=== PATIENT | female | born 1935 | race Caucasian/White ===

== ENCOUNTER 2017-08-19 09:40 | Inpatient (IN) | payer MEDICARE, OTHER ==
[~2017-08-19] VITALS: Ht 165.1 cm; Wt 81.8 kg
[2017-08-19] MEDS ORDERED: IBUP-1986 PO (10:22)
[2017-08-19] MEDS ORDERED: GABA-532 PO (10:23)
[2017-08-19] MEDS ORDERED: OXYC-150 PO (10:25)
[2017-08-19] MEDS ORDERED: CLON-529 PO (10:26)
[2017-08-19] MEDS ORDERED: CBD CREAM TP (10:37)
[2017-08-19 10:45] LABS: BASOPHILS % (AUTO) 0.1 % (0-1); EOSINOPHILS # (AUTO) 0.1 X10'3 (0-0.9); EOSINOPHILS % (AUTO) 0.5 % (0-6); HEMATOCRIT 33.9 % (35.0-45.0); HEMOGLOBIN 11.4 g/dl (12.0-16.0); LYMPHOCYTES # (AUTO) 0.8 X10'3 (1.1-4.8); LYMPHOCYTES % (AUTO) 5.8 % (21-51); MEAN CORPUSCULAR HEMOGLOBIN 27.8 PG (27.0-31.0); MEAN CORPUSCULAR HGB CONC 33.7 % (33.0-36.5); MEAN CORPUSCULAR VOLUME 82.5 FL (78-98); MEAN PLATELET VOLUME 8.5 FL (7.4-10.4); MONOCYTES # (AUTO) 0.9 X10'3 (0-0.9); MONOCYTES % (AUTO) 6.5 % (2-12); NEUTROPHILS % (AUTO) 87.1 % (42-75); PLATELET COUNT 161 X10'3 (140-440); RED BLOOD COUNT 4.11 X10'6 (4.20-5.60); WHITE BLOOD COUNT 13.7 X10'3 (4.5-11.0)
[2017-08-19 10:49] LABS: PARTIAL THROMBOPLASTIN TIME 31 SECONDS (22-32); PROTHROMBIN TIME 10.6 SECONDS (9.0-12.0)
[2017-08-19 10:53] LABS: ALANINE AMINOTRANSFERASE 28 U/L (12-78); ALBUMIN 2.7 G/DL (3.4-5.0); ALBUMIN/GLOBULIN RATIO 0.9 (1.1-1.5); ALKALINE PHOSPHATASE 102 IU/L (46-116); ANION GAP 11 (8-16); ASPARTATE AMINO TRANSFERASE 41 U/L (10-37); BILIRUBIN,TOTAL 0.4 MG/DL (0.1-1.0); BLOOD UREA NITROGEN 24 MG/DL (7-18); BUN/CREATININE RATIO 23.1 (6.6-38.0); CALCIUM 7.9 MG/DL (8.5-10.1); CHLORIDE 111 MMOL/L (99-107); CREATININE 1.04 MG/DL (0.40-0.90); GLUCOSE 122 MG/DL (70-104); MAGNESIUM 1.5 MG/DL (1.5-2.4); SODIUM 144 MMOL/L (135-145); TOTAL CARBON DIOXIDE 22.3 MMOL/L (24-32); TOTAL PROTEIN 5.8 G/DL (6.4-8.2); eGFR 51 ML/MIN
[2017-08-19 10:54] LABS: POTASSIUM 2.8 MMOL/L (3.5-5.1)
[2017-08-19 11:08] LABS: TOTAL CELLS COUNTED 100
[2017-08-19 11:09] LABS: PLATELET ESTIMATE NORMAL
[2017-08-19 11:11] LABS: CLARITY,URINE SLIGHTLY CLOUDY (Clear); COLOR,URINE YELLOW (Yellow); GLUCOSE, URINE NEGATIVE (Neg); KETONES,URINE NEGATIVE (Neg); LEUKOCYTE ESTERASE ,URINE NEGATIVE (Neg); NITRITES, URINE NEGATIVE (Neg); OCCULT BLOOD,URINE LARGE (Neg); PROTEIN,URINE 30 mg/dl (Neg); UROBILINOGEN,URINE 0.2 E.U/dL (0.2-1.0)
[2017-08-19 11:12] LABS: UA COLLECTION TYPE FOLEY CATH
[2017-08-19 11:23] LABS: BACTERIA,URINE 1+ /HPF (Neg); MUCUS STRANDS FEW /LPF (Neg); SQUAMOUS EPITHELIAL CELL,UR FEW /LPF (FEW)
[2017-08-19 11:24] LABS: WBC,URINE 0-4 /HPF (0-4)
[2017-08-19] MEDS ORDERED: normal saline 1000ML IV soln IVB ONE (11:35)
[2017-08-19] MEDS ORDERED: potassium Cl 10 mEq/100mL bag IV ONE (11:35)
[2017-08-19] MEDS ORDERED: potassium Cl 20 mEq SR tablet PO PRN (11:45)
[2017-08-19] MEDS ORDERED: potassium Cl 40MEQ/NS 500ml 500 ML IV PRN ×2 (11:45)
[2017-08-19] MEDS ORDERED: potassium 10mEq/100ml NS w/LIDOcaine (10mg/bag) IV ONE (11:50)
[2017-08-19] MEDS ORDERED: morphine 4 MG/ML inj SYRINge IV PRN (12:00)
[2017-08-19] MEDS ORDERED: magnesium hydroxide 30ml (MOM) UD suspension PO PRN (12:00)
[2017-08-19] MEDS ORDERED: ondansetron/PF 4mg/2ml inj IV PRN (12:00)
[2017-08-19] MEDS ORDERED: mag hydrox/Alum hydrox/simeth 30ml oral suspension PO PRN (12:00)
[2017-08-19 12:26] LABS: ABG BASE EXCESS -1.6 mmol/L (-2.0-3.0); ABG HCO3 21.4 mmol/L (22.0-26.0); ABG OXYGEN SATURATION 95.1 % (95-98); ABG PCO2 (T) 32.8 mmHg (32.0-45.0); ABG PH (T) 7.438 (7.350-7.450); ABG PO2 (T) 81.7 mmHg (83-108); ALLEN'S TEST Positive; FCOHb 0.1 % (0.5-1.5); FLOW 4 L/min; FMetHb 0.1 % (0.3-1.12); FO2Hb 94.9 % (94-100); PATIENT TEMPERATURE 38.5
[2017-08-19 13:00] VITALS: BP 118/58
[2017-08-19] MEDS: vancomycin/NS 1 GM ADD-VANTAGE 250 ML IV SCH ×2 (13:16→20:33)
[2017-08-19] MEDS: normal saline 1000ml 1,000 ML IV SCH ×2 (13:24→22:39)
[2017-08-19] MEDS ORDERED: ibuprofen tablet 400 MG TABLET PO PRN (14:10)
[2017-08-19 15:00] VITALS: BP 136/67
[2017-08-19] MEDS: cefepime 1GM/NS ADD-VANTAGE 100 ML IV SCH ×2 (15:19→15:21)
[2017-08-19] MEDS ORDERED: heparin 10,000 units/1 ML INJ IV ONE (16:00)
[2017-08-19] MEDS: aspirin 325mg tablet PO SCH (16:11)
[2017-08-19 16:49] LABS: BASOPHILS % (AUTO) 0 % (0-1); EOSINOPHILS % (AUTO) 0 % (0-6); HEMATOCRIT 33.9 % (35.0-45.0); HEMOGLOBIN 11.4 g/dl (12.0-16.0); LYMPHOCYTES # (AUTO) 0.7 X10'3 (1.1-4.8); LYMPHOCYTES % (AUTO) 3.8 % (21-51); MEAN CORPUSCULAR HEMOGLOBIN 27.9 PG (27.0-31.0); MEAN CORPUSCULAR HGB CONC 33.6 % (33.0-36.5); MEAN CORPUSCULAR VOLUME 83.1 FL (78-98); MEAN PLATELET VOLUME 8.4 FL (7.4-10.4); MONOCYTES # (AUTO) 0.9 X10'3 (0-0.9); MONOCYTES % (AUTO) 5.1 % (2-12); NEUTROPHILS # (AUTO) 15.8 X10'3 (1.8-7.7); NEUTROPHILS % (AUTO) 91.1 % (42-75); PLATELET COUNT 169 X10'3 (140-440); RED BLOOD COUNT 4.08 X10'6 (4.20-5.60); RED CELL DISTRIBUTION WIDTH 14.6 % (11.5-14.5); WHITE BLOOD COUNT 17.4 X10'3 (4.5-11.0)
[2017-08-19 17:16] LABS: CHOL/HDL RATIO 3.1 (0.00-4.99); CHOLESTEROL 119 MG/DL (0-200); HDL CHOLESTEROL 39 MG/DL (35-60); LDL CHOLESTEROL 62 MG/DL (50-100); TRIGLYCERIDES 106 MG/DL (20-135)
[2017-08-19 17:27] LABS: INR 1.1 INR; PROTHROMBIN TIME 11.4 SECONDS (9.0-12.0)
[2017-08-19 17:31] LABS: PARTIAL THROMBOPLASTIN TIME > 153 SECONDS (22-32)
[2017-08-19] MEDS: HYDROcodone/acetaminophen 5mg/325mg tablet PO PRN (17:57)
[2017-08-19 19:00] VITALS: BP 140/69
[2017-08-19] MEDS: gabapentin 300mg capsule PO SCH (20:33)
[2017-08-19] MEDS: metoprolol tartrate 12.5mg (1/2 tablet) PO SCH (20:33)
[2017-08-19 22:40] LABS: POTASSIUM 3.5 MMOL/L (3.5-5.1)
[2017-08-19 23:00] VITALS: BP 126/63
[2017-08-20] MEDS: morphine 4 MG/ML inj SYRINge IV PRN ×4 (02:06→20:44)
[2017-08-20 02:11] LABS: BASOPHILS % (AUTO) 0.1 % (0-1); EOSINOPHILS % (AUTO) 0 % (0-6); HEMATOCRIT 32.6 % (35.0-45.0); MEAN CORPUSCULAR HEMOGLOBIN 28.1 PG (27.0-31.0); MEAN CORPUSCULAR HGB CONC 33.8 % (33.0-36.5); MEAN CORPUSCULAR VOLUME 83.2 FL (78-98); MEAN PLATELET VOLUME 8.1 FL (7.4-10.4); MONOCYTES # (AUTO) 0.7 X10'3 (0-0.9); MONOCYTES % (AUTO) 4.8 % (2-12); NEUTROPHILS # (AUTO) 12.2 X10'3 (1.8-7.7); NEUTROPHILS % (AUTO) 88.1 % (42-75); PLATELET COUNT 161 X10'3 (140-440); RED BLOOD COUNT 3.91 X10'6 (4.20-5.60); RED CELL DISTRIBUTION WIDTH 14.6 % (11.5-14.5); WHITE BLOOD COUNT 13.9 X10'3 (4.5-11.0)
[2017-08-20 02:27] LABS: ALBUMIN 2.3 G/DL (3.4-5.0); ANION GAP 12 (8-16); BLOOD UREA NITROGEN 29 MG/DL (7-18); BUN/CREATININE RATIO 33.3 (6.6-38.0); CALCIUM 7.1 MG/DL (8.5-10.1); CHLORIDE 113 MMOL/L (99-107); CREATININE 0.87 MG/DL (0.40-0.90); GLUCOSE 123 MG/DL (70-104); MAGNESIUM 1.6 MG/DL (1.5-2.4); POTASSIUM 3.5 MMOL/L (3.5-5.1); SODIUM 146 MMOL/L (135-145); TOTAL CARBON DIOXIDE 21.2 MMOL/L (24-32); eGFR 62 ML/MIN
[2017-08-20 03:00] VITALS: BP 161/75
[2017-08-20] MEDS: morphine 2 MG/ML inj. syringe IV PRN ×2 (04:35→04:42)
[2017-08-20] MEDS ORDERED: morphine 4 MG/ML inj SYRINge IV PRN (04:35)
[2017-08-20 05:30] VITALS: BP 159/76
[2017-08-20] MEDS: normal saline 1000ml 1,000 ML IV SCH ×2 (07:59→18:00)
[2017-08-20] MEDS ORDERED: enoxaparin 40mg/0.4ml syringe SUBCUT SCH (08:00)
[2017-08-20] MEDS ORDERED: lisinopril 20mg tablet PO SCH (08:00)
[2017-08-20] MEDS: gabapentin 300mg capsule PO SCH ×3 (08:22→20:22)
[2017-08-20] MEDS: aspirin 325mg tablet PO SCH (08:23)
[2017-08-20] MEDS: atorvastatin 20mg tablet PO SCH (08:23)
[2017-08-20] MEDS: metoprolol tartrate 12.5mg (1/2 tablet) PO SCH ×2 (08:23→20:22)
[2017-08-20] MEDS: cefepime 1GM/NS ADD-VANTAGE 100 ML IV SCH ×4 (08:24→23:15)
[2017-08-20] MEDS: vancomycin/NS 1 GM ADD-VANTAGE 250 ML IV SCH (09:58)
[2017-08-20 11:00] VITALS: BP 165/74
[2017-08-20] MEDS ORDERED: magnesium/D5W IVPB 100 ML IV ONE (12:30)
[2017-08-20] MEDS: metoclopramide 5 mg/ml inj IV PRN ×2 (12:59→22:03)
[2017-08-20 13:05] LABS: LIPASE < 50 U/L (73-393)
[2017-08-20] MEDS: potassium Cl 20 mEq SR tablet PO SCH ×3 (13:25→23:15)
[2017-08-20 15:00] VITALS: BP 179/86
[2017-08-20] MEDS: ondansetron/PF 4mg/2ml inj IV PRN ×2 (15:15→20:37)
[2017-08-20] MEDS: acetaminophen 325mg tablet PO PRN (15:16)
[2017-08-20] MEDS: cloNIDine 0.1 mg tablet PO SCH (16:09)
[2017-08-20 19:00] VITALS: BP 135/63
[2017-08-20] MEDS: vancomycin inj 1,250 MG in normal saline 250ml IV soln 250 ML IV SCH (20:22)
[2017-08-20] MEDS: lactobacillus rhamnosus 10,000 MMU CELLS/CAPSULE PO SCH (20:22)
[2017-08-20 23:00] VITALS: BP 174/90
[2017-08-20] MEDS: HYDROcodone/acetaminophen 5mg/325mg tablet PO PRN (23:15)
[2017-08-21] VITALS (7 sets, daily range): BP systolic 135–169; BP diastolic 67–95
[2017-08-21] MEDS: normal saline 1000ml 1,000 ML IV SCH (03:55)
[2017-08-21] MEDS: HYDROcodone/acetaminophen 5mg/325mg tablet PO PRN ×2 (04:25→09:46)
[2017-08-21] MEDS: ondansetron/PF 4mg/2ml inj IV PRN ×2 (05:15→12:40)
[2017-08-21 06:21] LABS: ALBUMIN 2.2 G/DL (3.4-5.0); ANION GAP 11 (8-16); BLOOD UREA NITROGEN 37 MG/DL (7-18); BUN/CREATININE RATIO 41.6 (6.6-38.0); CALCIUM 7.8 MG/DL (8.5-10.1); CHLORIDE 114 MMOL/L (99-107); CREATININE 0.89 MG/DL (0.40-0.90); GLUCOSE 169 MG/DL (70-104); MAGNESIUM 2.4 MG/DL (1.5-2.4); POTASSIUM 3.4 MMOL/L (3.5-5.1); SODIUM 145 MMOL/L (135-145); TOTAL CARBON DIOXIDE 20.3 MMOL/L (24-32); eGFR 60 ML/MIN
[2017-08-21 06:52] LABS: BASOPHILS # (AUTO) 0.1 X10'3 (0-0.2); BASOPHILS % (AUTO) 0.4 % (0-1); EOSINOPHILS % (AUTO) 0.1 % (0-6); HEMATOCRIT 31.7 % (35.0-45.0); HEMOGLOBIN 10.6 g/dl (12.0-16.0); LYMPHOCYTES # (AUTO) 1.6 X10'3 (1.1-4.8); LYMPHOCYTES % (AUTO) 8.4 % (21-51); MEAN CORPUSCULAR HEMOGLOBIN 28.1 PG (27.0-31.0); MEAN CORPUSCULAR HGB CONC 33.5 % (33.0-36.5); MEAN CORPUSCULAR VOLUME 83.9 FL (78-98); MEAN PLATELET VOLUME 9.4 FL (7.4-10.4); MONOCYTES # (AUTO) 0.8 X10'3 (0-0.9); MONOCYTES % (AUTO) 4.1 % (2-12); NEUTROPHILS # (AUTO) 16.9 X10'3 (1.8-7.7); PLATELET COUNT 177 X10'3 (140-440); RED BLOOD COUNT 3.78 X10'6 (4.20-5.60); WHITE BLOOD COUNT 19.4 X10'3 (4.5-11.0)
[2017-08-21] MEDS: potassium Cl 20 mEq SR tablet PO PRN ×3 (07:15→17:22)
[2017-08-21] MEDS: gabapentin 300mg capsule PO SCH ×3 (07:17→20:59)
[2017-08-21] MEDS: atorvastatin 20mg tablet PO SCH (07:17)
[2017-08-21] MEDS: metoprolol tartrate 25mg tablet PO SCH ×2 (07:17→20:59)
[2017-08-21] MEDS: cloNIDine 0.1 mg tablet PO SCH ×2 (07:17→20:59)
[2017-08-21] MEDS: aspirin 81mg tablet.DR PO SCH (07:17)
[2017-08-21] MEDS: proCHLORperazine 10 MG/2 ml inj IV PRN ×2 (07:18→16:51)
[2017-08-21] MEDS: lactobacillus rhamnosus 10,000 MMU CELLS/CAPSULE PO SCH ×2 (07:18→20:59)
[2017-08-21] MEDS: cefepime 1GM/NS ADD-VANTAGE 100 ML IV SCH ×2 (07:23→17:22)
[2017-08-21] MEDS: clopidogrel 75mg tablet PO SCH (07:26)
[2017-08-21] MEDS: heparin 10,000 units/1 ML INJ IV PRN (07:42)
[2017-08-21 09:29] LABS: TROPONIN I 6.42 NG/ML (0.0-0.05)
[2017-08-21] MEDS: pantoprazole 40mg Tablet.DR PO SCH (09:33)
[2017-08-21] MEDS: vancomycin inj 1,250 MG in normal saline 250ml IV soln 250 ML IV SCH ×2 (09:34→20:58)
[2017-08-21 10:11] LABS: PLATELET ESTIMATE NORMAL; TOTAL CELLS COUNTED 100
[2017-08-21] MEDS ORDERED: iron dextran complex inj. 100 MG in normal saline 100ml IV soln 98 ML IV SCH (12:45)
[2017-08-21] MEDS ORDERED: folic acid 1mg/0.2ml inj IV SCH (12:45)
[2017-08-21] MEDS: LACTOSE-FREE FOOD 237ML (BOOST) PO SCH ×2 (13:00→18:00)
[2017-08-21] MEDS: morphine 4 MG/ML inj SYRINge IV PRN ×2 (13:01→20:58)
[2017-08-21] MEDS: acetaminophen 325mg tablet PO PRN (15:31)
[2017-08-22] VITALS (7 sets, daily range): BP systolic 132–186; BP diastolic 66–93
[2017-08-22] MEDS: cefepime 1GM/NS ADD-VANTAGE 100 ML IV SCH ×4 (00:35→23:33)
[2017-08-22] MEDS: morphine 4 MG/ML inj SYRINge IV PRN ×2 (02:45→20:13)
[2017-08-22 04:40] LABS: BASOPHILS % (AUTO) 0 % (0-1); EOSINOPHILS % (AUTO) 0 % (0-6); HEMATOCRIT 30.9 % (35.0-45.0); HEMOGLOBIN 10.7 g/dl (12.0-16.0); LYMPHOCYTES % (AUTO) 9.8 % (21-51); MEAN CORPUSCULAR HEMOGLOBIN 28.4 PG (27.0-31.0); MEAN CORPUSCULAR HGB CONC 34.5 % (33.0-36.5); MEAN CORPUSCULAR VOLUME 82.3 FL (78-98); MEAN PLATELET VOLUME 8.9 FL (7.4-10.4); MONOCYTES # (AUTO) 0.8 X10'3 (0-0.9); NEUTROPHILS # (AUTO) 17.7 X10'3 (1.8-7.7); NEUTROPHILS % (AUTO) 86.2 % (42-75); PLATELET COUNT 211 X10'3 (140-440); RED BLOOD COUNT 3.76 X10'6 (4.20-5.60); RED CELL DISTRIBUTION WIDTH 14.6 % (11.5-14.5); WHITE BLOOD COUNT 20.5 X10'3 (4.5-11.0)
[2017-08-22 04:55] LABS: ALBUMIN 2.2 G/DL (3.4-5.0); ANION GAP 12 (8-16); BLOOD UREA NITROGEN 32 MG/DL (7-18); BUN/CREATININE RATIO 37.2 (6.6-38.0); CALCIUM 7.7 MG/DL (8.5-10.1); CHLORIDE 113 MMOL/L (99-107); CREATININE 0.86 MG/DL (0.40-0.90); GLUCOSE 137 MG/DL (70-104); POTASSIUM 3.4 MMOL/L (3.5-5.1); SODIUM 146 MMOL/L (135-145); TOTAL CARBON DIOXIDE 21.4 MMOL/L (24-32); eGFR 63 ML/MIN
[2017-08-22] MEDS: heparin 10,000 units/1 ML INJ IV PRN (05:21)
[2017-08-22] MEDS: HYDROcodone/acetaminophen 5mg/325mg tablet PO PRN ×2 (05:25→15:28)
[2017-08-22] MEDS: proCHLORperazine 10 MG/2 ml inj IV PRN ×2 (07:22→20:31)
[2017-08-22] MEDS: cloNIDine 0.1 mg tablet PO SCH ×3 (07:26→20:12)
[2017-08-22] MEDS: aspirin 81mg tablet.DR PO SCH (07:26)
[2017-08-22] MEDS: pantoprazole 40mg Tablet.DR PO SCH (07:26)
[2017-08-22] MEDS: gabapentin 300mg capsule PO SCH ×2 (07:26→20:11)
[2017-08-22] MEDS: metoprolol tartrate 25mg tablet PO SCH ×2 (07:26→20:11)
[2017-08-22] MEDS: atorvastatin 20mg tablet PO SCH (07:26)
[2017-08-22] MEDS: clopidogrel 75mg tablet PO SCH (07:26)
[2017-08-22] MEDS: lactobacillus rhamnosus 10,000 MMU CELLS/CAPSULE PO SCH ×2 (07:27→20:11)
[2017-08-22] MEDS: LACTOSE-FREE FOOD 237ML (BOOST) PO SCH ×3 (07:27→19:25)
[2017-08-22] MEDS ORDERED: VANCOMYCIN LEVEL IV ONE (07:30)
[2017-08-22 07:45] LABS: TOTAL CELLS COUNTED 100
[2017-08-22 07:46] LABS: PLATELET ESTIMATE NORMAL; POLYCHROMASIA FEW
[2017-08-22] MEDS ORDERED: LIDOcaine 1% 30ml vial 5 ML in potassium Cl 40MEQ/NS 500ml 500 ML IV PRN (08:30)
[2017-08-22] MEDS: vancomycin inj 1,250 MG in normal saline 250ml IV soln 250 ML IV SCH ×2 (09:48→20:11)
[2017-08-22] MEDS ORDERED: furosemide 10 MG/1 ML 10ml inj IV ONE (13:20)
[2017-08-23 02:00] VITALS: BP 148/70
[2017-08-23 03:26] LABS: BASOPHILS % (AUTO) 0.3 % (0-1); EOSINOPHILS # (AUTO) 0.1 X10'3 (0-0.9); EOSINOPHILS % (AUTO) 0.9 % (0-6); HEMATOCRIT 28.5 % (35.0-45.0); HEMOGLOBIN 9.8 g/dl (12.0-16.0); LYMPHOCYTES # (AUTO) 2.5 X10'3 (1.1-4.8); LYMPHOCYTES % (AUTO) 18.1 % (21-51); MEAN CORPUSCULAR HEMOGLOBIN 28.3 PG (27.0-31.0); MEAN CORPUSCULAR HGB CONC 34.2 % (33.0-36.5); MEAN CORPUSCULAR VOLUME 82.6 FL (78-98); MEAN PLATELET VOLUME 8.8 FL (7.4-10.4); MONOCYTES # (AUTO) 0.8 X10'3 (0-0.9); MONOCYTES % (AUTO) 6.1 % (2-12); NEUTROPHILS # (AUTO) 10.4 X10'3 (1.8-7.7); NEUTROPHILS % (AUTO) 74.6 % (42-75); PLATELET COUNT 216 X10'3 (140-440); RED BLOOD COUNT 3.45 X10'6 (4.20-5.60); RED CELL DISTRIBUTION WIDTH 13.9 % (11.5-14.5)
[2017-08-23 03:48] LABS: ANION GAP 8 (8-16); BLOOD UREA NITROGEN 28 MG/DL (7-18); BUN/CREATININE RATIO 33.3 (6.6-38.0); CALCIUM 7.6 MG/DL (8.5-10.1); CHLORIDE 111 MMOL/L (99-107); CREATININE 0.84 MG/DL (0.40-0.90); GLUCOSE 119 MG/DL (70-104); MAGNESIUM 1.8 MG/DL (1.5-2.4); POTASSIUM 3.1 MMOL/L (3.5-5.1); SODIUM 145 MMOL/L (135-145); TOTAL CARBON DIOXIDE 26.5 MMOL/L (24-32); eGFR 65 ML/MIN
[2017-08-23] MEDS: proCHLORperazine 10 MG/2 ml inj IV PRN (04:35)
[2017-08-23] MEDS: morphine 2 MG/ML inj. syringe IV PRN (04:37)
[2017-08-23 07:00] VITALS: BP 167/73
[2017-08-23] MEDS ORDERED: magnesium Cl slow-release 64mg tablet PO PRN (07:15)
[2017-08-23] MEDS ORDERED: potassium Cl 40MEQ/NS 500ml 500 ML IV PRN ×2 (07:15)
[2017-08-23] MEDS ORDERED: magnesium 4gm in 100ml NS 100 ML IV PRN (07:15)
[2017-08-23] MEDS ORDERED: magnesium/D5W IVPB 100 ML IV PRN (07:15)
[2017-08-23] MEDS: cloNIDine 0.1 mg tablet PO SCH ×3 (07:56→21:49)
[2017-08-23] MEDS: metoprolol tartrate 25mg tablet PO SCH ×2 (08:00→19:47)
[2017-08-23] MEDS: pantoprazole 40mg Tablet.DR PO SCH (08:07)
[2017-08-23] MEDS: clopidogrel 75mg tablet PO SCH (08:08)
[2017-08-23] MEDS: furosemide 20 MG/2 ML vial IV SCH (08:08)
[2017-08-23] MEDS: lactobacillus rhamnosus 10,000 MMU CELLS/CAPSULE PO SCH ×2 (08:08→19:44)
[2017-08-23] MEDS: gabapentin 300mg capsule PO SCH ×2 (08:08→19:45)
[2017-08-23] MEDS: atorvastatin 20mg tablet PO SCH (08:09)
[2017-08-23] MEDS: aspirin 81mg tablet.DR PO SCH (08:09)
[2017-08-23] MEDS: LACTOSE-FREE FOOD 237ML (BOOST) PO SCH ×3 (08:10→19:44)
[2017-08-23] MEDS: cefepime 1GM/NS ADD-VANTAGE 100 ML IV SCH ×2 (08:10→16:58)
[2017-08-23] MEDS: ondansetron/PF 4mg/2ml inj IV PRN ×2 (08:28→18:42)
[2017-08-23] MEDS: potassium Cl 20 mEq SR tablet PO PRN ×3 (08:28→18:42)
[2017-08-23] MEDS: vancomycin inj 1,250 MG in normal saline 250ml IV soln 250 ML IV SCH ×2 (09:52→19:44)
[2017-08-23 11:00] VITALS: BP 150/65
[2017-08-23 13:09] LABS: TRIIODOTHYRONINE (T3) 67 ng/dL (71-180)
[2017-08-23 19:00] VITALS: BP 161/93
[2017-08-23 23:00] VITALS: BP 159/63
[2017-08-24] MEDS: ondansetron/PF 4mg/2ml inj IV PRN ×2 (00:32→22:11)
[2017-08-24] MEDS: cefepime 1GM/NS ADD-VANTAGE 100 ML IV SCH ×3 (00:35→16:53)
[2017-08-24] MEDS: hydrALAZINE 20mg/ml inj. IV PRN (00:37)
[2017-08-24 03:00] VITALS: BP 150/63
[2017-08-24] MEDS: diphenoxylate/atropine tablet (Lomotil) PO PRN (03:51)
[2017-08-24] MEDS: HYDROcodone/acetaminophen 5mg/325mg tablet PO PRN (05:06)
[2017-08-24 05:30] VITALS: BP 179/70
[2017-08-24 06:49] LABS: BASOPHILS # (AUTO) 0.1 X10'3 (0-0.2); BASOPHILS % (AUTO) 0.4 % (0-1); EOSINOPHILS # (AUTO) 0.1 X10'3 (0-0.9); EOSINOPHILS % (AUTO) 0.3 % (0-6); HEMATOCRIT 35.8 % (35.0-45.0); HEMOGLOBIN 12.2 g/dl (12.0-16.0); LYMPHOCYTES # (AUTO) 2.2 X10'3 (1.1-4.8); LYMPHOCYTES % (AUTO) 10.5 % (21-51); MEAN CORPUSCULAR HGB CONC 34.1 % (33.0-36.5); MEAN CORPUSCULAR VOLUME 82.1 FL (78-98); MEAN PLATELET VOLUME 8.2 FL (7.4-10.4); MONOCYTES % (AUTO) 4.6 % (2-12); NEUTROPHILS # (AUTO) 17.9 X10'3 (1.8-7.7); NEUTROPHILS % (AUTO) 84.2 % (42-75); PLATELET COUNT 308 X10'3 (140-440); RED BLOOD COUNT 4.36 X10'6 (4.20-5.60); RED CELL DISTRIBUTION WIDTH 14.3 % (11.5-14.5); WHITE BLOOD COUNT 21.3 X10'3 (4.5-11.0)
[2017-08-24 07:00] LABS: ALBUMIN 2.3 G/DL (3.4-5.0); ANION GAP 13 (8-16); BLOOD UREA NITROGEN 21 MG/DL (7-18); BUN/CREATININE RATIO 27.3 (6.6-38.0); CALCIUM 8.5 MG/DL (8.5-10.1); CHLORIDE 106 MMOL/L (99-107); CREATININE 0.77 MG/DL (0.40-0.90); GLUCOSE 99 MG/DL (70-104); MAGNESIUM 1.8 MG/DL (1.5-2.4); SODIUM 142 MMOL/L (135-145); eGFR 71 ML/MIN
[2017-08-24 07:11] LABS: TOTAL CELLS COUNTED 100
[2017-08-24 07:12] LABS: PLATELET ESTIMATE NORMAL
[2017-08-24 07:24] LABS: POTASSIUM 2.8 MMOL/L (3.5-5.1)
[2017-08-24] MEDS: LACTOSE-FREE FOOD 237ML (BOOST) PO SCH ×3 (08:00→19:11)
[2017-08-24] MEDS: vancomycin inj 1,250 MG in normal saline 250ml IV soln 250 ML IV SCH ×2 (08:03→19:12)
[2017-08-24] MEDS: gabapentin 300mg capsule PO SCH ×2 (08:04→19:17)
[2017-08-24] MEDS: clopidogrel 75mg tablet PO SCH (08:04)
[2017-08-24] MEDS: aspirin 81mg tablet.DR PO SCH (08:04)
[2017-08-24] MEDS: cloNIDine 0.1 mg tablet PO SCH ×3 (08:04→22:00)
[2017-08-24] MEDS: atorvastatin 20mg tablet PO SCH (08:04)
[2017-08-24] MEDS: metoprolol tartrate 25mg tablet PO SCH ×2 (08:04→19:16)
[2017-08-24] MEDS: lactobacillus rhamnosus 10,000 MMU CELLS/CAPSULE PO SCH ×2 (08:04→19:17)
[2017-08-24] MEDS: pantoprazole 40mg Tablet.DR PO SCH (08:04)
[2017-08-24] MEDS: furosemide 20 MG/2 ML vial IV SCH (08:05)
[2017-08-24] MEDS: potassium Cl 20 mEq SR tablet PO PRN ×3 (08:06→22:23)
[2017-08-24] MEDS: proCHLORperazine 10 MG/2 ml inj IV PRN (08:21)
[2017-08-24 11:00] VITALS: BP 150/70
[2017-08-24 15:00] VITALS: BP 147/77
[2017-08-24 19:00] VITALS: BP 121/76
[2017-08-24 23:00] VITALS: BP 168/69
[2017-08-25] MEDS: cefepime 1GM/NS ADD-VANTAGE 100 ML IV SCH ×4 (00:19→23:40)
[2017-08-25] MEDS: HYDROcodone/acetaminophen 5mg/325mg tablet PO PRN ×3 (01:34→13:10)
[2017-08-25 03:00] VITALS: BP 158/78
[2017-08-25 05:30] VITALS: BP 170/77
[2017-08-25] MEDS: pantoprazole 40mg Tablet.DR PO SCH (07:06)
[2017-08-25] MEDS: furosemide 20 MG/2 ML vial IV SCH (07:07)
[2017-08-25] MEDS: lactobacillus rhamnosus 10,000 MMU CELLS/CAPSULE PO SCH ×2 (07:08→20:44)
[2017-08-25] MEDS: aspirin 81mg tablet.DR PO SCH (07:08)
[2017-08-25] MEDS: atorvastatin 20mg tablet PO SCH (07:08)
[2017-08-25] MEDS: cloNIDine 0.1 mg tablet PO SCH ×3 (07:08→20:43)
[2017-08-25] MEDS: metoprolol tartrate 25mg tablet PO SCH ×2 (07:10→20:44)
[2017-08-25] MEDS: gabapentin 300mg capsule PO SCH ×2 (07:14→20:43)
[2017-08-25] MEDS: clopidogrel 75mg tablet PO SCH (07:14)
[2017-08-25] MEDS: LACTOSE-FREE FOOD 237ML (BOOST) PO SCH ×4 (08:34→19:00)
[2017-08-25] MEDS: vancomycin inj 1,250 MG in normal saline 250ml IV soln 250 ML IV SCH ×2 (08:34→20:39)
[2017-08-25] MEDS: diphenoxylate/atropine tablet (Lomotil) PO PRN (08:34)
[2017-08-25 08:43] LABS: MAGNESIUM 1.9 MG/DL (1.5-2.4); POTASSIUM 3.7 MMOL/L (3.5-5.1)
[2017-08-25 11:00] VITALS: BP 160/72
[2017-08-25 19:00] VITALS: BP 168/72
[2017-08-25 23:00] VITALS: BP 166/68
[2017-08-26] VITALS (22 sets, daily range): BP systolic 140–183; BP diastolic 62–86
[2017-08-26] MEDS: diphenoxylate/atropine tablet (Lomotil) PO PRN (01:26)
[2017-08-26] MEDS: HYDROcodone/acetaminophen 5mg/325mg tablet PO PRN ×2 (01:28→21:31)
[2017-08-26] MEDS: hydrALAZINE 20mg/ml inj. IV PRN (01:53)
[2017-08-26 07:07] LABS: BASOPHILS # (AUTO) 0.1 X10'3 (0-0.2); BASOPHILS % (AUTO) 0.4 % (0-1); EOSINOPHILS # (AUTO) 0.4 X10'3 (0-0.9); HEMATOCRIT 36.7 % (35.0-45.0); HEMOGLOBIN 12.5 g/dl (12.0-16.0); LYMPHOCYTES # (AUTO) 2.2 X10'3 (1.1-4.8); LYMPHOCYTES % (AUTO) 12.6 % (21-51); MEAN CORPUSCULAR HEMOGLOBIN 28.1 PG (27.0-31.0); MEAN CORPUSCULAR VOLUME 82.8 FL (78-98); MEAN PLATELET VOLUME 8.2 FL (7.4-10.4); MONOCYTES # (AUTO) 1.1 X10'3 (0-0.9); NEUTROPHILS # (AUTO) 13.8 X10'3 (1.8-7.7); PLATELET COUNT 375 X10'3 (140-440); RED BLOOD COUNT 4.43 X10'6 (4.20-5.60); RED CELL DISTRIBUTION WIDTH 14.8 % (11.5-14.5); WHITE BLOOD COUNT 17.5 X10'3 (4.5-11.0)
[2017-08-26 07:19] LABS: MAGNESIUM 1.7 MG/DL (1.5-2.4)
[2017-08-26 07:27] LABS: BASOPHILS % (MANUAL) 1 % (0-1); EOSINOPHILS % (MANUAL) 1 % (0-6); LYMPHOCYTES % (MANUAL) 11 % (21-51); METAMYLEOCYTES% (MANUAL) 3 % (0-0); MONOCYTES % (MANUAL) 3 % (2-12); NEUTROPHILS % (MANUAL) 81 % (42-75); PLATELET ESTIMATE NORMAL; TOTAL CELLS COUNTED 100
[2017-08-26] MEDS: pantoprazole 40mg Tablet.DR PO SCH (07:30)
[2017-08-26] MEDS ORDERED: potassium Cl 40MEQ/NS 500ml 500 ML IV PRN ×2 (07:30)
[2017-08-26] MEDS ORDERED: potassium Cl 20 mEq SR tablet PO PRN (07:30)
[2017-08-26] MEDS: gabapentin 300mg capsule PO SCH ×2 (08:00→21:32)
[2017-08-26] MEDS: atorvastatin 20mg tablet PO SCH (08:00)
[2017-08-26] MEDS: lactobacillus rhamnosus 10,000 MMU CELLS/CAPSULE PO SCH ×2 (08:00→21:32)
[2017-08-26] MEDS: cefepime 1GM/NS ADD-VANTAGE 100 ML IV SCH ×3 (08:00→23:37)
[2017-08-26] MEDS: cloNIDine 0.1 mg tablet PO SCH ×3 (08:19→21:31)
[2017-08-26] MEDS: metoprolol tartrate 25mg tablet PO SCH ×2 (08:19→21:31)
[2017-08-26] MEDS ORDERED: metoprolol tartrate 50mg tablet PO ONE (09:05)
[2017-08-26] MEDS: furosemide 20 MG/2 ML vial IV SCH (09:21)
[2017-08-26] MEDS: ringers solution, lacted 1,000 ML IV SCH (10:10)
[2017-08-26] MEDS: vancomycin inj 1,250 MG in normal saline 250ml IV soln 250 ML IV SCH ×2 (12:40→21:33)
[2017-08-26] MEDS ORDERED: ringers solution, lacted 1,000 ML IV SCH (13:37)
[2017-08-26] MEDS ORDERED: morphine 4 MG/ML inj SYRINge IV PRN ×2 (13:40)
[2017-08-26] MEDS ORDERED: ondansetron/PF 4mg/2ml inj IV PRN (13:40)
[2017-08-26] MEDS ORDERED: proCHLORperazine 10 MG/2 ml inj IV PRN (13:40)
[2017-08-26] MEDS ORDERED: meperidine/PF 25mg/ml syringe IV PRN ×3 (13:40)
[2017-08-26] MEDS ORDERED: fentaNYL/PF 50MCG/1 ML 2ML syringe ONE (13:51)
[2017-08-26] MEDS ORDERED: MIDAZolam 5mg/5ml vial ONE (13:52)
[2017-08-26] MEDS ORDERED: ROPIVAcaine 0.5% (5mg/ml) 30ml vial ONE (13:53)
[2017-08-26] MEDS ORDERED: LIDOcaine 2% (20mg/ml) 5ml vial ONE ×2 (13:54)
[2017-08-26] MEDS ORDERED: ondansetron/PF 4mg/2ml inj ONE (14:58)
[2017-08-26] MEDS ORDERED: acetaminophen 325mg tablet PO PRN (15:00)
[2017-08-26] MEDS ORDERED: diphenhydrAMINE 25mg capsule PO PRN ×2 (15:00)
[2017-08-26] MEDS ORDERED: bisacodyl 10mg suppository rectal RC PRN (15:00)
[2017-08-26] MEDS ORDERED: magnesium hydroxide 30ml (MOM) UD suspension PO PRN (15:00)
[2017-08-26] MEDS: LACTOSE-FREE FOOD 237ML (BOOST) PO SCH (18:00)
[2017-08-26] MEDS: heparin, porcine 5000 units/ml vial SQ SCH (21:29)
[2017-08-26] MEDS: potassium Cl 20 mEq SR tablet PO SCH (21:32)
[2017-08-26] MEDS: aspirin 81mg tablet.DR PO SCH (21:32)
[2017-08-26] MEDS: sennosides 8.6mg tablet PO SCH (21:32)
[2017-08-26] MEDS: HYDROcodone/acetaminophen 10/325mg tab PO PRN (23:36)
[2017-08-27] VITALS (10 sets, daily range): BP systolic 125–176; BP diastolic 54–76
[2017-08-27] MEDS: morphine 4 MG/ML inj SYRINge IV PRN (01:28)
[2017-08-27 05:58] LABS: BASOPHILS % (AUTO) 0.3 % (0-1); EOSINOPHILS # (AUTO) 0.3 X10'3 (0-0.9); EOSINOPHILS % (AUTO) 2.7 % (0-6); HEMATOCRIT 32.4 % (35.0-45.0); HEMOGLOBIN 10.9 g/dl (12.0-16.0); LYMPHOCYTES # (AUTO) 1.9 X10'3 (1.1-4.8); LYMPHOCYTES % (AUTO) 16.3 % (21-51); MEAN CORPUSCULAR HEMOGLOBIN 27.9 PG (27.0-31.0); MEAN CORPUSCULAR HGB CONC 33.7 % (33.0-36.5); MEAN CORPUSCULAR VOLUME 82.9 FL (78-98); MEAN PLATELET VOLUME 8.1 FL (7.4-10.4); MONOCYTES # (AUTO) 1.2 X10'3 (0-0.9); MONOCYTES % (AUTO) 9.8 % (2-12); NEUTROPHILS # (AUTO) 8.4 X10'3 (1.8-7.7); NEUTROPHILS % (AUTO) 70.9 % (42-75); PLATELET COUNT 355 X10'3 (140-440); RED CELL DISTRIBUTION WIDTH 14.4 % (11.5-14.5); WHITE BLOOD COUNT 11.8 X10'3 (4.5-11.0)
[2017-08-27 06:21] LABS: ALBUMIN 2.2 G/DL (3.4-5.0); ANION GAP 8 (8-16); BLOOD UREA NITROGEN 20 MG/DL (7-18); BUN/CREATININE RATIO 31.3 (6.6-38.0); CHLORIDE 107 MMOL/L (99-107); CREATININE 0.64 MG/DL (0.40-0.90); GLUCOSE 99 MG/DL (70-104); MAGNESIUM 1.9 MG/DL (1.5-2.4); POTASSIUM 3.6 MMOL/L (3.5-5.1); SODIUM 140 MMOL/L (135-145); TOTAL CARBON DIOXIDE 25.5 MMOL/L (24-32); eGFR 88 ML/MIN
[2017-08-27] MEDS: pantoprazole 40mg Tablet.DR PO SCH (07:56)
[2017-08-27] MEDS: cefepime 1GM/NS ADD-VANTAGE 100 ML IV SCH ×2 (07:57→16:09)
[2017-08-27] MEDS: LACTOSE-FREE FOOD 237ML (BOOST) PO SCH ×3 (08:00→18:37)
[2017-08-27] MEDS: potassium Cl 20 mEq SR tablet PO SCH ×2 (08:30→17:30)
[2017-08-27] MEDS: HYDROcodone/acetaminophen 10/325mg tab PO PRN ×3 (08:59→21:30)
[2017-08-27] MEDS: metoprolol tartrate 25mg tablet PO SCH ×2 (09:07→19:57)
[2017-08-27] MEDS: vancomycin inj 1,250 MG in normal saline 250ml IV soln 250 ML IV SCH ×2 (09:07→20:04)
[2017-08-27] MEDS: cloNIDine 0.1 mg tablet PO SCH ×3 (09:08→21:26)
[2017-08-27] MEDS: atorvastatin 20mg tablet PO SCH (09:08)
[2017-08-27] MEDS: gabapentin 300mg capsule PO SCH ×2 (09:08→20:04)
[2017-08-27] MEDS: aspirin 81mg tablet.DR PO SCH (09:08)
[2017-08-27] MEDS: lactobacillus rhamnosus 10,000 MMU CELLS/CAPSULE PO SCH ×2 (09:08→20:04)
[2017-08-27] MEDS: furosemide 20 MG/2 ML vial IV SCH (09:28)
[2017-08-27] MEDS: heparin, porcine 5000 units/ml vial SQ SCH ×2 (09:29→20:05)
[2017-08-27 14:45] LABS: C-REACTIVE PROTEIN 0.82 MG/DL (0.0-0.5)
[2017-08-27] MEDS: ringers solution, lacted 1,000 ML IV SCH (19:18)
[2017-08-27] MEDS: sennosides 8.6mg tablet PO SCH (21:00)
[2017-08-28] MEDS: cefepime 1GM/NS ADD-VANTAGE 100 ML IV SCH ×4 (00:13→23:42)
[2017-08-28 02:00] VITALS: BP 142/63
[2017-08-28] MEDS: ringers solution, lacted 1,000 ML IV SCH (02:10)
[2017-08-28] MEDS: HYDROcodone/acetaminophen 10/325mg tab PO PRN ×4 (02:21→23:48)
[2017-08-28 05:50] LABS: BASOPHILS % (AUTO) 0.4 % (0-1); EOSINOPHILS # (AUTO) 0.2 X10'3 (0-0.9); EOSINOPHILS % (AUTO) 1.9 % (0-6); HEMATOCRIT 32.9 % (35.0-45.0); LYMPHOCYTES # (AUTO) 1.9 X10'3 (1.1-4.8); LYMPHOCYTES % (AUTO) 18.9 % (21-51); MEAN CORPUSCULAR HGB CONC 33.5 % (33.0-36.5); MEAN CORPUSCULAR VOLUME 83.5 FL (78-98); MEAN PLATELET VOLUME 8.2 FL (7.4-10.4); MONOCYTES % (AUTO) 9.5 % (2-12); NEUTROPHILS # (AUTO) 7.1 X10'3 (1.8-7.7); NEUTROPHILS % (AUTO) 69.3 % (42-75); PLATELET COUNT 318 X10'3 (140-440); RED BLOOD COUNT 3.94 X10'6 (4.20-5.60); RED CELL DISTRIBUTION WIDTH 14.6 % (11.5-14.5); WHITE BLOOD COUNT 10.3 X10'3 (4.5-11.0)
[2017-08-28 06:08] LABS: ALBUMIN 2.3 G/DL (3.4-5.0); ANION GAP 8 (8-16); BLOOD UREA NITROGEN 19 MG/DL (7-18); CALCIUM 8.1 MG/DL (8.5-10.1); CHLORIDE 106 MMOL/L (99-107); CREATININE 0.73 MG/DL (0.40-0.90); GLUCOSE 96 MG/DL (70-104); MAGNESIUM 1.9 MG/DL (1.5-2.4); POTASSIUM 3.4 MMOL/L (3.5-5.1); SODIUM 140 MMOL/L (135-145); eGFR 76 ML/MIN
[2017-08-28 06:46] VITALS: BP 154/73
[2017-08-28] MEDS: gabapentin 300mg capsule PO SCH ×2 (07:42→20:23)
[2017-08-28] MEDS: atorvastatin 20mg tablet PO SCH (07:42)
[2017-08-28] MEDS: lactobacillus rhamnosus 10,000 MMU CELLS/CAPSULE PO SCH ×2 (07:42→20:23)
[2017-08-28] MEDS: potassium Cl 20 mEq SR tablet PO SCH ×2 (07:42→17:21)
[2017-08-28] MEDS: pantoprazole 40mg Tablet.DR PO SCH (07:44)
[2017-08-28] MEDS: aspirin 81mg tablet.DR PO SCH (07:44)
[2017-08-28] MEDS: cloNIDine 0.1 mg tablet PO SCH ×3 (07:44→20:23)
[2017-08-28] MEDS: metoprolol tartrate 25mg tablet PO SCH ×2 (07:44→20:23)
[2017-08-28] MEDS: furosemide 20 MG/2 ML vial IV SCH (07:50)
[2017-08-28] MEDS: heparin, porcine 5000 units/ml vial SQ SCH ×2 (08:31→20:24)
[2017-08-28] MEDS: LACTOSE-FREE FOOD 237ML (BOOST) PO SCH ×3 (08:32→17:54)
[2017-08-28] MEDS: vancomycin inj 1,250 MG in normal saline 250ml IV soln 250 ML IV SCH ×2 (08:37→20:22)
[2017-08-28 12:04] VITALS: BP 144/53
[2017-08-28] MEDS ORDERED: iohexol 350 MG/ML 50ML vial IV ONE (14:47)
[2017-08-28] MEDS ORDERED: iohexol 350MG/ML 100ml bottle IV ONE (14:47)
[2017-08-28 16:14] VITALS: BP 145/53
[2017-08-28 18:00] VITALS: BP 152/65
[2017-08-28] MEDS: sennosides 8.6mg tablet PO SCH (20:48)
[2017-08-28] MEDS: potassium Cl 20 mEq SR tablet PO PRN (21:54)
[2017-08-28 22:00] VITALS: BP 136/59
[2017-08-29] MEDS: potassium Cl 20 mEq SR tablet PO PRN (02:44)
[2017-08-29 04:09] VITALS: BP 151/56
[2017-08-29] MEDS: HYDROcodone/acetaminophen 10/325mg tab PO PRN ×3 (05:42→21:30)
[2017-08-29 07:17] VITALS: BP 173/63
[2017-08-29] MEDS ORDERED: VANCOMYCIN LEVEL IV ONE (07:30)
[2017-08-29] MEDS: cefepime 1GM/NS ADD-VANTAGE 100 ML IV SCH ×2 (07:47→16:38)
[2017-08-29] MEDS: lactobacillus rhamnosus 10,000 MMU CELLS/CAPSULE PO SCH ×2 (07:48→19:47)
[2017-08-29] MEDS: atorvastatin 20mg tablet PO SCH (07:48)
[2017-08-29] MEDS: gabapentin 300mg capsule PO SCH ×2 (07:48→19:47)
[2017-08-29] MEDS: pantoprazole 40mg Tablet.DR PO SCH (07:48)
[2017-08-29] MEDS: heparin, porcine 5000 units/ml vial SQ SCH ×2 (07:48→19:47)
[2017-08-29] MEDS: potassium Cl 20 mEq SR tablet PO SCH ×2 (07:48→16:38)
[2017-08-29] MEDS: cloNIDine 0.1 mg tablet PO SCH ×3 (07:48→21:29)
[2017-08-29] MEDS: aspirin 81mg tablet.DR PO SCH (07:48)
[2017-08-29] MEDS: furosemide 20 MG/2 ML vial IV SCH (07:48)
[2017-08-29] MEDS: metoprolol tartrate 25mg tablet PO SCH ×2 (07:48→19:47)
[2017-08-29] MEDS: LACTOSE-FREE FOOD 237ML (BOOST) PO SCH ×3 (07:49→18:00)
[2017-08-29 08:55] LABS: ALBUMIN 2.9 G/DL (3.4-5.0); ANION GAP 9 (8-16); BLOOD UREA NITROGEN 15 MG/DL (7-18); BUN/CREATININE RATIO 17.6 (6.6-38.0); CHLORIDE 103 MMOL/L (99-107); CREATININE 0.85 MG/DL (0.40-0.90); GLUCOSE 110 MG/DL (70-104); MAGNESIUM 1.8 MG/DL (1.5-2.4); POTASSIUM 3.9 MMOL/L (3.5-5.1); SODIUM 139 MMOL/L (135-145); TOTAL CARBON DIOXIDE 26.7 MMOL/L (24-32); eGFR 64 ML/MIN
[2017-08-29 09:03] LABS: VANCOMYCIN,TROUGH 21.4 UG/ML (6.0-14.0)
[2017-08-29] MEDS: vancomycin/NS 1 GM ADD-VANTAGE 250 ML IV SCH ×2 (10:43→21:29)
[2017-08-29 14:01] VITALS: BP 134/56
[2017-08-29 15:00] VITALS: BP 131/57
[2017-08-29 18:00] VITALS: BP 161/71
[2017-08-29] MEDS: sennosides 8.6mg tablet PO SCH (21:29)
[2017-08-29 22:00] VITALS: BP 133/52
[2017-08-30] MEDS: cefepime 1GM/NS ADD-VANTAGE 100 ML IV SCH ×3 (00:12→15:29)
[2017-08-30 02:00] VITALS: BP 144/55
[2017-08-30 06:10] LABS: ALBUMIN 2.5 G/DL (3.4-5.0); ANION GAP 10 (8-16); BLOOD UREA NITROGEN 20 MG/DL (7-18); BUN/CREATININE RATIO 26.7 (6.6-38.0); CALCIUM 8.5 MG/DL (8.5-10.1); CHLORIDE 106 MMOL/L (99-107); CREATININE 0.75 MG/DL (0.40-0.90); GLUCOSE 96 MG/DL (70-104); MAGNESIUM 1.9 MG/DL (1.5-2.4); POTASSIUM 3.9 MMOL/L (3.5-5.1); SODIUM 141 MMOL/L (135-145); TOTAL CARBON DIOXIDE 24.9 MMOL/L (24-32); eGFR 74 ML/MIN
[2017-08-30 07:29] VITALS: BP 171/72
[2017-08-30] MEDS: lactobacillus rhamnosus 10,000 MMU CELLS/CAPSULE PO SCH ×2 (07:44→21:38)
[2017-08-30] MEDS: HYDROcodone/acetaminophen 5mg/325mg tablet PO PRN ×2 (07:45→15:52)
[2017-08-30] MEDS: cloNIDine 0.1 mg tablet PO SCH ×3 (07:45→21:38)
[2017-08-30] MEDS: atorvastatin 20mg tablet PO SCH (07:45)
[2017-08-30] MEDS: gabapentin 300mg capsule PO SCH ×2 (07:45→21:38)
[2017-08-30] MEDS: aspirin 81mg tablet.DR PO SCH (07:45)
[2017-08-30] MEDS: pantoprazole 40mg Tablet.DR PO SCH (07:45)
[2017-08-30] MEDS: metoprolol tartrate 25mg tablet PO SCH ×2 (07:46→21:38)
[2017-08-30] MEDS: potassium Cl 20 mEq SR tablet PO SCH ×2 (07:46→17:33)
[2017-08-30] MEDS: furosemide 20 MG/2 ML vial IV SCH (07:47)
[2017-08-30] MEDS: heparin, porcine 5000 units/ml vial SQ SCH ×2 (07:48→21:39)
[2017-08-30] MEDS: LACTOSE-FREE FOOD 237ML (BOOST) PO SCH ×3 (07:48→18:00)
[2017-08-30] MEDS: vancomycin/NS 1 GM ADD-VANTAGE 250 ML IV SCH ×2 (10:40→22:19)
[2017-08-30 12:35] VITALS: BP 133/57
[2017-08-30] MEDS: amLODIPine 5mg tablet PO SCH (13:20)
[2017-08-30] MEDS ORDERED: amLODIPine 5mg tablet PO ONE (13:50)
[2017-08-30 19:00] VITALS: BP 147/60
[2017-08-30] MEDS ORDERED: VANCOMYCIN LEVEL IV ONE (21:30)
[2017-08-30] MEDS: sennosides 8.6mg tablet PO SCH (21:38)
[2017-08-30 23:00] VITALS: BP 118/67
[2017-08-31] MEDS: cefepime 1GM/NS ADD-VANTAGE 100 ML IV SCH ×2 (00:07→07:45)
[2017-08-31] MEDS: morphine 4 MG/ML inj SYRINge IV PRN (02:52)
[2017-08-31] MEDS: HYDROcodone/acetaminophen 5mg/325mg tablet PO PRN ×3 (03:00→22:12)
[2017-08-31 06:00] VITALS: BP 142/58
[2017-08-31 06:15] LABS: ALBUMIN 2.6 G/DL (3.4-5.0); ANION GAP 11 (8-16); BLOOD UREA NITROGEN 16 MG/DL (7-18); BUN/CREATININE RATIO 24.2 (6.6-38.0); CALCIUM 8.6 MG/DL (8.5-10.1); CHLORIDE 105 MMOL/L (99-107); CREATININE 0.66 MG/DL (0.40-0.90); GLUCOSE 104 MG/DL (70-104); POTASSIUM 4.4 MMOL/L (3.5-5.1); SODIUM 139 MMOL/L (135-145); TOTAL CARBON DIOXIDE 23.1 MMOL/L (24-32); eGFR 85 ML/MIN
[2017-08-31] MEDS: lactobacillus rhamnosus 10,000 MMU CELLS/CAPSULE PO SCH ×2 (07:44→20:21)
[2017-08-31] MEDS: aspirin 81mg tablet.DR PO SCH (07:44)
[2017-08-31] MEDS: potassium Cl 20 mEq SR tablet PO SCH ×2 (07:44→17:50)
[2017-08-31] MEDS: amLODIPine 5mg tablet PO SCH (07:45)
[2017-08-31] MEDS: atorvastatin 20mg tablet PO SCH (07:46)
[2017-08-31] MEDS: cloNIDine 0.1 mg tablet PO SCH ×3 (07:46→20:21)
[2017-08-31] MEDS: gabapentin 300mg capsule PO SCH ×2 (07:46→20:21)
[2017-08-31] MEDS: pantoprazole 40mg Tablet.DR PO SCH (07:46)
[2017-08-31] MEDS: metoprolol tartrate 25mg tablet PO SCH ×2 (07:46→20:23)
[2017-08-31] MEDS: heparin, porcine 5000 units/ml vial SQ SCH ×2 (07:47→20:20)
[2017-08-31] MEDS: LACTOSE-FREE FOOD 237ML (BOOST) PO SCH ×3 (08:00→17:53)
[2017-08-31 11:00] VITALS: BP 148/65
[2017-08-31] MEDS: vancomycin/NS 1 GM ADD-VANTAGE 250 ML IV SCH ×2 (12:27→22:11)
[2017-08-31 15:00] VITALS: BP 134/54
[2017-08-31 18:00] VITALS: BP 136/68
[2017-08-31] MEDS ORDERED: ciprofloxacin 500MG tablet PO SCH (20:00)
[2017-08-31] MEDS: sennosides 8.6mg tablet PO SCH (20:26)
[2017-08-31 22:00] VITALS: BP 141/66
[2017-08-31] MEDS: ciprofloxacin 250mg tablet PO SCH (22:12)
[2017-09-01 02:00] VITALS: BP 136/59
[2017-09-01] MEDS: HYDROcodone/acetaminophen 10/325mg tab PO PRN ×2 (03:35→12:01)
[2017-09-01 07:00] VITALS: BP 151/70
[2017-09-01] MEDS: heparin, porcine 5000 units/ml vial SQ SCH (07:40)
[2017-09-01] MEDS: atorvastatin 20mg tablet PO SCH (07:40)
[2017-09-01] MEDS: cloNIDine 0.1 mg tablet PO SCH ×2 (07:40→13:01)
[2017-09-01] MEDS: potassium Cl 20 mEq SR tablet PO SCH (07:40)
[2017-09-01] MEDS: aspirin 81mg tablet.DR PO SCH (07:40)
[2017-09-01] MEDS: gabapentin 300mg capsule PO SCH (07:40)
[2017-09-01] MEDS: lactobacillus rhamnosus 10,000 MMU CELLS/CAPSULE PO SCH (07:40)
[2017-09-01] MEDS: amLODIPine 5mg tablet PO SCH (07:40)
[2017-09-01] MEDS: pantoprazole 40mg Tablet.DR PO SCH (07:40)
[2017-09-01] MEDS: metoprolol tartrate 25mg tablet PO SCH (07:48)
[2017-09-01] MEDS: LACTOSE-FREE FOOD 237ML (BOOST) PO SCH ×2 (07:49→13:02)
[2017-09-01] MEDS: vancomycin/NS 1 GM ADD-VANTAGE 250 ML IV SCH (10:01)
[2017-09-01] MEDS: ciprofloxacin 250mg tablet PO SCH (10:02)
[2017-09-01 11:00] VITALS: BP 123/53
[2017-09-01] MEDS: ondansetron/PF 4mg/2ml inj IV PRN (15:42)
== END 2017-09-01 16:10 | DRG 853 ==
LOC: ER 09:41 → ED HOLD 11:59 → PCU 3S 13:00
PROVIDERS: ADMIT Internal Medicine; ATTEND Internal Medicine
PROC: 0Y6P0Z0 Detachment at Right 1st Toe, Complete, Open Approach (ICD-10-PCS; 2017-08-26)
PROC: 0Y6Q0Z0 Detachment at Left 1st Toe, Complete, Open Approach (ICD-10-PCS; principal; 2017-08-26 13:54)
PROC: B4201ZZ Computerized Tomography (CT Scan) of Abdominal Aorta using Low Osmolar Contrast (ICD-10-PCS; 2017-08-28)
PROC: B4241ZZ Computerized Tomography (CT Scan) of Superior Mesenteric Artery using Low Osmolar Contrast (ICD-10-PCS; 2017-08-28)
PROC: B4281ZZ Computerized Tomography (CT Scan) of Bilateral Renal Arteries using Low Osmolar Contrast (ICD-10-PCS; 2017-08-28)
PROC: B42H1ZZ Computerized Tomography (CT Scan) of Bilateral Lower Extremity Arteries using Low Osmolar Contrast (ICD-10-PCS; 2017-08-28)
PROC: B4211ZZ Computerized Tomography (CT Scan) of Celiac Artery using Low Osmolar Contrast (ICD-10-PCS; 2017-08-28)
PROC: B42H1ZZ Computerized Tomography (CT Scan) of Bilateral Lower Extremity Arteries using Low Osmolar Contrast (ICD-10-PCS; 2017-08-28)
PROC: 02HV33Z Insertion of Infusion Device into Superior Vena Cava, Percutaneous Approach (ICD-10-PCS; 2017-08-31)
PROC: B548ZZA Ultrasonography of Superior Vena Cava, Guidance (ICD-10-PCS; 2017-08-31)
DX: A41.9 Sepsis, unspecified organism (principal); G93.40 Encephalopathy, unspecified; I21.4 Non-ST elevation (NSTEMI) myocardial infarction; J96.01 Acute respiratory failure with hypoxia; N17.9 Acute kidney failure, unspecified; M86.8X7 Other osteomyelitis, ankle and foot; M86.671 Other chronic osteomyelitis, right ankle and foot; L03.90 Cellulitis, unspecified; E87.6 Hypokalemia; L97.529 Non-pressure chronic ulcer of other part of left foot with unspecified severity; L97.519 Non-pressure chronic ulcer of other part of right foot with unspecified severity; E03.9 Hypothyroidism, unspecified; F20.9 Schizophrenia, unspecified; E78.00 Pure hypercholesterolemia, unspecified; I10 Essential (primary) hypertension; I25.10 Atherosclerotic heart disease of native coronary artery without angina pectoris; I67.1 Cerebral aneurysm, nonruptured; M21.40 Flat foot [pes planus] (acquired), unspecified foot; M81.0 Age-related osteoporosis without current pathological fracture; E66.9 Obesity, unspecified; G89.29 Other chronic pain; G62.9 Polyneuropathy, unspecified; I45.81 Long QT syndrome; I70.209 Unspecified atherosclerosis of native arteries of extremities, unspecified extremity; N83.201 Unspecified ovarian cyst, right side; E86.0 Dehydration; L84 Corns and callosities; R65.20 Severe sepsis without septic shock; Z66 Do not resuscitate; Z99.3 Dependence on wheelchair; Z90.49 Acquired absence of other specified parts of digestive tract; Z90.710 Acquired absence of both cervix and uterus; Z88.2 Allergy status to sulfonamides; Z88.8 Allergy status to other drugs, medicaments and biological substances; Z86.73 Personal history of transient ischemic attack (TIA), and cerebral infarction without residual deficits; Z87.440 Personal history of urinary (tract) infections; Z68.30 Body mass index [BMI] 30.0-30.9, adult
CPT/HCPCS: 36415; 36569; 36600; 71045; 71250; 73660; 74176; 75635; 76856; 76937; 80048; 80053; 80061; 80202; 81001; 82803; 83036; 83605; 83690; 83735; 83880; 84132; 84145; 84439; 84443; 84479; 84480; 84484; 85018; 85025; 85379; 85610; 85651; 85730; 86140; 87040; 87070; 93005; 93306; 93922; 93925; 97110; 97161; 97162; 97530; 99291; A6212; A6213; A6222; A6223; A6250; A6257; A6446; A6449; A7000; J0360; J0692; J0780; J1644; J1750; J1940; J2001; J2250; J2270; J2405; J2765; J2795; J3010; J3370; J3480; J3490; J7030; J7120; Q9967

== ENCOUNTER 2018-02-22 08:50 | Observation (INO) | payer MEDICARE, MEDICAID ==
[~2018-02-22] VITALS: Ht 167.6 cm; Wt 77.0 kg
[~2018-02-22 08:50] MED LIST: CBD CREAM TP; CLON-529 PO; GABA-532 PO; IBUP-1986 PO; OXYC-150 PO
[2018-02-22] MEDS ORDERED: aspirin 81mg tab.chew PO ONE (08:55)
[2018-02-22] MEDS ORDERED: nitroGLYCERIN 1gm ointment UD TP ONE (09:30)
[2018-02-22 09:36] LABS: BASOPHILS % (AUTO) 0.5 % (0-1); EOSINOPHILS # (AUTO) 0.2 X10'3 (0-0.9); EOSINOPHILS % (AUTO) 2.2 % (0-6); HEMATOCRIT 40.6 % (35.0-45.0); HEMOGLOBIN 13.1 g/dl (12.0-16.0); LYMPHOCYTES # (AUTO) 1.6 X10'3 (1.1-4.8); LYMPHOCYTES % (AUTO) 22.8 % (21-51); MEAN CORPUSCULAR HGB CONC 32.4 % (33.0-36.5); MEAN CORPUSCULAR VOLUME 83.3 FL (78-98); MONOCYTES # (AUTO) 0.4 X10'3 (0-0.9); MONOCYTES % (AUTO) 5.1 % (2-12); NEUTROPHILS # (AUTO) 4.9 X10'3 (1.8-7.7); NEUTROPHILS % (AUTO) 69.4 % (42-75); PLATELET COUNT 281 X10'3 (140-440); RED BLOOD COUNT 4.87 X10'6 (4.20-5.60)
[2018-02-22 09:52] LABS: ALANINE AMINOTRANSFERASE 14 U/L (12-78); ALBUMIN 3.7 G/DL (3.4-5.0); ALBUMIN/GLOBULIN RATIO 1.2 (1.1-1.5); ALKALINE PHOSPHATASE 79 IU/L (46-116); ANION GAP 12 (8-16); ASPARTATE AMINO TRANSFERASE 11 U/L (10-37); BILIRUBIN,TOTAL 0.4 MG/DL (0.1-1.0); BLOOD UREA NITROGEN 23 MG/DL (7-18); BUN/CREATININE RATIO 23.5 (6.6-38.0); CALCIUM 8.6 MG/DL (8.5-10.1); CHLORIDE 103 MMOL/L (99-107); CREATININE 0.98 MG/DL (0.40-0.90); GLUCOSE 104 MG/DL (70-104); SODIUM 141 MMOL/L (135-145); TOTAL CARBON DIOXIDE 26.5 MMOL/L (24-32); TOTAL PROTEIN 6.9 G/DL (6.4-8.2); eGFR 54 ML/MIN
--- NOTE | 2018-02-22 09:55 | NUR ---
PATIENT DENIES CHEST PAIN AT THIST JOSE LUIS,FAMILY AT BEDSIDE.
[2018-02-22 10:04] LABS: PARTIAL THROMBOPLASTIN TIME 28 SECONDS (22-32); PROTHROMBIN TIME 9.7 SECONDS (9.0-12.0)
[2018-02-22] MEDS ORDERED: HYDR-4353 PO (10:41)
[2018-02-22] MEDS ORDERED: mag hydrox/Alum hydrox/simeth 30ml oral suspension PO PRN (11:00)
[2018-02-22] MEDS ORDERED: acetaminophen 325mg tablet PO PRN (11:00)
[2018-02-22] MEDS ORDERED: potassium Cl 40MEQ/NS 500ml 500 ML IV PRN ×2 (11:00)
[2018-02-22] MEDS ORDERED: magnesium 4gm in 100ml NS 100 ML IV PRN (11:00)
[2018-02-22] MEDS ORDERED: morphine 2 MG/ML inj. syringe IV PRN (11:00)
[2018-02-22] MEDS ORDERED: magnesium hydroxide 30ml (MOM) UD suspension PO PRN (11:00)
[2018-02-22] MEDS ORDERED: potassium Cl 20 mEq SR tablet PO PRN ×2 (11:00)
[2018-02-22] MEDS ORDERED: ondansetron/PF 4mg/2ml inj IV PRN (11:00)
[2018-02-22] MEDS ORDERED: magnesium Cl slow-release 64mg tablet PO PRN (11:00)
[2018-02-22] MEDS ORDERED: aminophylline 250mg/10ml inj. IV PRN (11:05)
[2018-02-22] MEDS ORDERED: metoprolol tartrate 1mg/ml inj IV PRN (11:05)
[2018-02-22] MEDS ORDERED: nitroGLYCERIN 0.4mg SUBLingual tab SL PRN (11:05)
[2018-02-22] MEDS ORDERED: regadenoson 0.4mg/5ml syringe IV ONE (11:05)
[2018-02-22] MEDS: aspirin 81mg tab.chew PO SCH (11:10)
[2018-02-22] MEDS ORDERED: regadenoson 0.4mg/5ml syringe IV PRN (11:35)
[2018-02-22] MEDS ORDERED: BENA20TA2 PO (12:23)
[2018-02-22] MEDS ORDERED: DULO-31 PO (12:23)
--- NOTE | 2018-02-22 12:23 | NUR ---
TIMOTHY PEERMAN [phone]
[2018-02-22] MEDS: gabapentin 300mg capsule PO SCH ×2 (13:19→21:40)
--- NOTE | 2018-02-22 13:40 | NUR ---
ATTEMPTED TO CALL REPORT TO BI RN BUT NOT AVAILABLE AT THIS TIME AND WILL CALL ED RN WHEN READY.WILL INFORM PRIMARY RN.
--- NOTE | 2018-02-22 13:50 | NUR ---
RECEIVED REPORT FROM ER. PT STATES SHE WILL NOT PUT HER KEENE IN SAFE. ER NURSE STATES SHE HAS 200.00 PHONE HER GRAND DAUGHTER SHE WILL BE IN TODAY TO PICK IT UP
[2018-02-22 14:16] VITALS: BP 167/76
[2018-02-22] MEDS: cloNIDine 0.1 mg tablet PO SCH ×2 (14:30→21:40)
[2018-02-22] MEDS ORDERED: morphine 4 MG/ML inj SYRINge IV PRN (14:47)
[2018-02-22 15:20] VITALS: BP 166/82
[2018-02-22 15:30] VITALS: BP 173/71
[2018-02-22] MEDS ORDERED: hydrALAZINE 20mg/ml inj. IV PRN (15:35)
[2018-02-22] MEDS: carVEDilol 3.125mg tablet PO SCH ×2 (15:46→21:40)
[2018-02-22 17:58] VITALS: BP 140/56
[2018-02-22 18:00] VITALS: BP 137/70
--- NOTE | 2018-02-22 18:29 | NUR ---
PATIENT REPORT RECEIVED FROM SHIRA RODRIGUEZ.
[2018-02-22] MEDS ORDERED: carVEDilol 3.125mg tablet PO SCH (20:00)
[2018-02-22] MEDS ORDERED: cloNIDine 0.1 mg tablet PO SCH (20:00)
[2018-02-22] MEDS ORDERED: lisinopril 10 MG tablet PO SCH (21:00)
--- NOTE | 2018-02-22 21:16 | NUR ---
PAGER ID: [phone] MESSAGE: PATIENT [id number] TASHA PATEL: PT IN PAIN REQUESTING NORCO 10. HAS NOT YET BEEN ADDRESSED ON MED REC.THANK YOU. KB Brady [phone]
[2018-02-22] MEDS: HYDROcodone/acetaminophen 10/325mg tab PO PRN (21:40)
[2018-02-22] MEDS: heparin, porcine 5000 units/ml vial SQ SCH (21:42)
[2018-02-22 22:00] VITALS: BP 134/62
[2018-02-23] VITALS (19 sets, daily range): BP systolic 115–192; BP diastolic 55–91
[2018-02-23] MEDS: HYDROcodone/acetaminophen 10/325mg tab PO PRN (03:44)
[2018-02-23 05:08] LABS: BASOPHILS # (AUTO) 0.1 X10'3 (0-0.2); BASOPHILS % (AUTO) 0.8 % (0-1); EOSINOPHILS # (AUTO) 0.3 X10'3 (0-0.9); HEMATOCRIT 35.4 % (35.0-45.0); HEMOGLOBIN 11.7 g/dl (12.0-16.0); LYMPHOCYTES # (AUTO) 2.8 X10'3 (1.1-4.8); LYMPHOCYTES % (AUTO) 41.6 % (21-51); MEAN CORPUSCULAR HEMOGLOBIN 27.6 PG (27.0-31.0); MEAN CORPUSCULAR VOLUME 83.6 FL (78-98); MONOCYTES # (AUTO) 0.4 X10'3 (0-0.9); MONOCYTES % (AUTO) 6.6 % (2-12); NEUTROPHILS # (AUTO) 3.2 X10'3 (1.8-7.7); PLATELET COUNT 281 X10'3 (140-440); RED BLOOD COUNT 4.24 X10'6 (4.20-5.60); RED CELL DISTRIBUTION WIDTH 13.7 % (11.5-14.5); WHITE BLOOD COUNT 6.8 X10'3 (4.5-11.0)
[2018-02-23 05:31] LABS: ALANINE AMINOTRANSFERASE 14 U/L (12-78); ALBUMIN 3.4 G/DL (3.4-5.0); ALBUMIN/GLOBULIN RATIO 1.2 (1.1-1.5); ALKALINE PHOSPHATASE 72 IU/L (46-116); ANION GAP 9 (8-16); ASPARTATE AMINO TRANSFERASE 11 U/L (10-37); BILIRUBIN,TOTAL 0.3 MG/DL (0.1-1.0); BLOOD UREA NITROGEN 23 MG/DL (7-18); BUN/CREATININE RATIO 23.5 (6.6-38.0); CALCIUM 8.6 MG/DL (8.5-10.1); CHLORIDE 107 MMOL/L (99-107); CREATININE 0.98 MG/DL (0.40-0.90); GLUCOSE 90 MG/DL (70-104); POTASSIUM 4.1 MMOL/L (3.5-5.1); SODIUM 143 MMOL/L (135-145); TOTAL CARBON DIOXIDE 26.6 MMOL/L (24-32); TOTAL PROTEIN 6.3 G/DL (6.4-8.2); eGFR 54 ML/MIN
--- NOTE | 2018-02-23 06:26 | NUR ---
PATIENT REPORT GIVEN TO POLO RODRIGUEZ.
[2018-02-23] MEDS: cloNIDine 0.1 mg tablet PO SCH ×2 (07:53→09:40)
[2018-02-23] MEDS ORDERED: K and/or MAG REPLACEMENT MC SCH (08:00)
[2018-02-23] MEDS ORDERED: regadenoson 0.4mg/5ml syringe IV ONE (08:30)
[2018-02-23] MEDS ORDERED: aminophylline inj. 10 ML IV ONE (08:30)
[2018-02-23] MEDS ORDERED: metoprolol tartrate 1mg/ml inj IV ONE (08:48)
[2018-02-23] MEDS: carVEDilol 3.125mg tablet PO SCH (09:40)
[2018-02-23] MEDS: gabapentin 300mg capsule PO SCH (09:40)
[2018-02-23] MEDS: aspirin 81mg tab.chew PO SCH (09:40)
[2018-02-23] MEDS: heparin, porcine 5000 units/ml vial SQ SCH (09:41)
[2018-02-23] MEDS ORDERED: hydrALAZINE 20mg/ml inj. IV PRN (11:40)
[2018-02-23] MEDS ORDERED: ASPI81TA52 PO (13:53)
[2018-02-23] MEDS ORDERED: ROSU20TA PO (13:53)
[2018-02-23] MEDS ORDERED: METO-395 PO (13:53)
[2018-02-23] MEDS ORDERED: duloxetine 30mg CAPSULE.DR PO SCH (21:00)
== END 2018-02-23 16:28 | disposition home or self-care (01) ==
LOC: ER 08:50 → ED HOLD 10:57 → PCU 3S 14:00
PROVIDERS: ADMIT Internal Medicine; ATTEND Internal Medicine
DX: R07.89 Other chest pain (principal); R94.39 Abnormal result of other cardiovascular function study; I10 Essential (primary) hypertension; R42 Dizziness and giddiness; I25.10 Atherosclerotic heart disease of native coronary artery without angina pectoris; I25.2 Old myocardial infarction; E78.00 Pure hypercholesterolemia, unspecified; L08.9 Local infection of the skin and subcutaneous tissue, unspecified; R19.00 Intra-abdominal and pelvic swelling, mass and lump, unspecified site; Z90.710 Acquired absence of both cervix and uterus; Z86.73 Personal history of transient ischemic attack (TIA), and cerebral infarction without residual deficits; G62.9 Polyneuropathy, unspecified
CPT/HCPCS: 36415; 71045; 78452; 80053; 83735; 84484; 85025; 85610; 85730; 87070; 93005; 93017; 96372; 96374; 96375; 99284; A9500; G0378; J0280; J1644; J3490

== ENCOUNTER 2018-04-20 14:44 | Inpatient (IN) | payer MEDICARE, MEDICAID | END 2018-04-27 13:00 | LOC: ER 14:44 → PCU 3S 04-21 07:25 → ICU 2S 04-22 10:37 → ED HOLD 17:33 → MED 3N 04-21 21:10 | PROC: B211YZZ Fluoroscopy of Multiple Coronary Arteries using Other Contrast (ICD-10-PCS; principal; 2018-04-22 08:00) | PROC: 0212093 Bypass Coronary Artery, Three Arteries from Coronary Artery with Autologous Venous Tissue, Open Approach (ICD-10-PCS; 2018-04-22 08:00) | PROC: 02100Z9 Bypass Coronary Artery, One Artery from Left Internal Mammary, Open Approach (ICD-10-PCS; 2018-04-22 08:00) | PROC: 06BQ4ZZ Excision of Left Saphenous Vein, Percutaneous Endoscopic Approach (ICD-10-PCS; 2018-04-22 08:00) | PROC: B246ZZ4 Ultrasonography of Right and Left Heart, Transesophageal (ICD-10-PCS; 2018-04-22 08:00) | DX: I25.110 Atherosclerotic heart disease of native coronary artery with unstable angina pectoris (principal); I25.2 Old myocardial infarction ==

== ENCOUNTER 2018-05-25 17:08 | Inpatient (IN) | payer MEDICARE, MEDICAID | END 2018-05-29 14:25 | LOC: ED HOLD 05-26 00:23 → ER 17:08 → ED HOLD 20:53 → MED 3N 05-26 09:10 | PROC: 0Y9J0ZZ Drainage of Left Lower Leg, Open Approach (ICD-10-PCS; principal; 2018-05-26 12:55) | DX: T81.41XA Infection following a procedure, superficial incisional surgical site, initial encounter (principal); E43 Unspecified severe protein-calorie malnutrition; L02.416 Cutaneous abscess of left lower limb ==

== ENCOUNTER 2020-06-03 18:05 | Emergency (ER) | payer MEDICARE, MEDICAID ==
[~2020-06-03] VITALS: Ht 165.1 cm; Wt 80.0 kg
[~2020-06-03 18:05] MED LIST changes: +ASPI-1397 PO; -CBD CREAM TP; -CLON-529 PO; +CLON0.1T2 PO; +GEMF600T PO; +HYDR-4353 PO; -IBUP-1986 PO; +LISI10TA27 PO; +MULT-933 PO; -OXYC-150 PO; +PANT40SU2 PO
[2020-06-03 18:44] LABS: BASOPHILS # (AUTO) 0.1 X10'3 (0-0.2); EOSINOPHILS # (AUTO) 0.1 X10'3 (0-0.9); EOSINOPHILS % (AUTO) 2.1 % (0-6); HEMATOCRIT 37.8 % (35.0-45.0); HEMOGLOBIN 12.4 g/dl (12.0-16.0); LYMPHOCYTES # (AUTO) 2.4 X10'3 (1.1-4.8); LYMPHOCYTES % (AUTO) 42.1 % (21-51); MEAN CORPUSCULAR HEMOGLOBIN 28.3 PG (27.0-31.0); MEAN CORPUSCULAR HGB CONC 32.8 g/dL (33.0-36.5); MEAN CORPUSCULAR VOLUME 86.2 FL (78-98); MONOCYTES # (AUTO) 0.4 X10'3 (0-0.9); MONOCYTES % (AUTO) 7.4 % (2-12); NEUTROPHILS # (AUTO) 2.7 X10'3 (1.8-7.7); NEUTROPHILS % (AUTO) 47.4 % (42-75); PLATELET COUNT 218 X10'3 (140-440); RED BLOOD COUNT 4.38 X10'6 (4.20-5.60); RED CELL DISTRIBUTION WIDTH 14.4 % (11.5-14.5); WHITE BLOOD COUNT 5.8 X10'3 (4.5-11.0)
[2020-06-03 18:52] LABS: ALANINE AMINOTRANSFERASE 12 U/L (12-78); ALBUMIN/GLOBULIN RATIO 1.2 (1.1-1.5); ALKALINE PHOSPHATASE 53 IU/L (46-116); ASPARTATE AMINO TRANSFERASE 18 U/L (10-37); BILIRUBIN,TOTAL 0.3 MG/DL (0.1-1.0); BLOOD UREA NITROGEN 12 MG/DL (7-18); BUN/CREATININE RATIO 14.3 (6.6-38.0); CALCIUM 7.3 MG/DL (8.5-10.1); CHLORIDE 112 MMOL/L (99-107); CREATININE 0.84 MG/DL (0.40-0.90); GLUCOSE 86 MG/DL (70-104); POTASSIUM 3.3 MMOL/L (3.5-5.1); TOTAL PROTEIN 5.6 G/DL (6.4-8.2); eGFR 64 ML/MIN
[2020-06-03 19:02] LABS: ANION GAP 14 (8-16); SODIUM 146 MMOL/L (135-145)
[2020-06-03] MEDS ORDERED: iohexol 350MG/ML 100ml bottle IV ONE (22:17)
[2020-06-03] MEDS ORDERED: diazepam inj 5 MG/ML inj. IV ONE (22:50)
[2020-06-04 00:22] VITALS: BP 154/73
== END 2020-06-04 02:02 | disposition home or self-care (01) ==
LOC: ER 18:05
DX: R07.89 Other chest pain (principal); R42 Dizziness and giddiness; R91.1 Solitary pulmonary nodule; R51.9 Headache, unspecified; Z88.8 Allergy status to other drugs, medicaments and biological substances; Z79.82 Long term (current) use of aspirin; Z88.2 Allergy status to sulfonamides; Z79.899 Other long term (current) drug therapy
CPT/HCPCS: 36415; 71045; 71275; 74175; 80053; 83880; 84484; 85025; 93005; 96374; 99285; J3360; Q9967